=== PATIENT | female | born 1925 | race Caucasian/White ===

== ENCOUNTER 2017-01-29 19:40 | Inpatient (IN) | payer MEDICAID ==
[~2017-01-29] VITALS: Ht 157.5 cm; Wt 54.0 kg
[~2017-01-29 19:40] MED LIST: ATRMDI INH; CARV25TA55 PO; DIGO125T79 PO; FURO-149 PO; LIP40 PO; METF-510 PO; NITSL SL; NOR10 PO; TRAZ-123 PO; WARF5TAB2 PO
[2017-01-29 19:45] VITALS: BP 133/57; PULSE 57; RESP 16; TEMP 98.3; O2SAT 96
--- NOTE | 2017-01-29 20:25 | NUR ---
Placed in room H1 . Placed on pulse oximeter. To gown for exam. Side rails up. Report given to CM Mendez.
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
--- NOTE | 2017-01-29 20:36 | NUR ---
MOY Roa at bedside examining patient.
[2017-01-29] MEDS ORDERED: ONDANSETRON HCL 4 MG/2 ML VIAL IVP ONE (20:45)
[2017-01-29] MEDS ORDERED: NACL 0.9% 1,000 ML IV ONE (20:45)
--- NOTE | 2017-01-29 20:46 | NUR ---
Note undone in EDM - 01/30/17 at 0514 by DENA Pt was brought by BLS. Pt states that she was at her daughters house and started having 8/10 abd pain with vomitting. After vomitting, she was dizzy for 15 mins. Upon assessment, pt has 2/10 epigastric pain. Denies SOB. Pt states she still feels weak. AAOx4. Will continue to monitor. No other injuries or complaints mentioned/noted. No distress noted.
[2017-01-29 20:53] LABS: BASOPHILS % (AUTO) 0.3 % (0.0-2.0); MEAN CORPUSCULAR HEMOGLOBIN 25 pg (27-31); MEAN CORPUSCULAR HGB CONC 33 % (32-36)
--- NOTE | 2017-01-29 21:00 | NUR ---
# 20 gauge angiocath placed to L AC. Use of asceptic technique. Opsite placed over site. Blood return noted. Flushed with 10 cc of normal saline. No evidence of infiltration noted. Patient tolerated well.
[2017-01-29 21:02] LABS: EOSINOPHILS # (AUTO) 0.1 K/uL (0.0-0.4); EOSINOPHILS % (AUTO) 0.8 % (0.0-4.0); HEMATOCRIT 37.1 % (36-48); HEMOGLOBIN 12.1 g/dL (12.0-16.0); LYMPHOCYTES # (AUTO) 1.3 K/uL (1.0-5.5); LYMPHOCYTES % (AUTO) 13.2 % (20.5-51.5); MEAN CORPUSCULAR VOLUME 78 fL (79.0-98.0); MONOCYTES # (AUTO) 0.5 K/uL (0.0-1.0); MONOCYTES % (AUTO) 5.1 % (1.7-9.3); NEUTROPHILS # (AUTO) 7.6 K/uL (1.8-7.7); NEUTROPHILS % (AUTO) 80.6 % (40.0-70.0); PLATELET COUNT (AUTO) 247 K/uL (130-430); RED BLOOD CELL COUNT(AUTO) 4.78 MIL/uL (4.2-6.2); RED CELL DISTRIBUTION WIDTH 18.1 % (9.0-15.0); WHITE BLOOD COUNT (AUTO) 9.5 K/uL (4.8-10.8)
[2017-01-29 21:07] LABS: ANION GAP 9 (5-15); CALCIUM 9.6 mg/dL (8.4-11.0); CHLORIDE 101 mmol/L (98-107); CREATININE 1.31 mg/dL (0.55-1.30); GLUCOSE 173 mg/dL (70-99); POTASSIUM 4.1 mmol/L (3.5-5.1); SODIUM SERUM 137 mmol/L (136-145); UREA NITROGEN, BLOOD 22 mg/dL (8-21)
[2017-01-29 21:19] LABS: ALANINE AMINOTRANSFERASE 17 U/L (12-78); ALBUMIN 3.5 g/dL (3.4-4.8); ASPARTATE AMINOTRANSFERASE 14 U/L (10-37); LIPASE 444 U/L (73-393); TOTAL BILIRUBIN 0.7 mg/dL (0.0-1.0); TOTAL PROTEIN, SERUM 7.1 g/dL (6.4-8.3)
[2017-01-29 21:28] LABS: INR 3.9 (0.8-1.2); PROTHROMBIN TIME 44.5 SECS (9.5-12.5)
[2017-01-29] MEDS ORDERED: MORPHINE 2 MG/ML INJ. SYRINGE IVP ONE (21:45)
[2017-01-29 22:38] LABS: BILIRUBIN,URINE NEGATIVE (NEGATIVE); BLOOD, URINE NEGATIVE (NEGATIVE); CLARITY/URINE CLEAR (CLEAR); COLOR,URINE YELLOW (YELLOW); GLUCOSE,URINE NEGATIVE (NEGATIVE); KETONES,URINE NEGATIVE (NEGATIVE); LEUKOCYTE ESTERASE ,URINE NEGATIVE (NEGATIVE); NITRITE, URINE NEGATIVE (NEGATIVE); PROTEIN URINE TRACE (NEGATIVE); UROBILINOGEN,URINE 0.2 (0.2-1.0)
[2017-01-29 22:57] LABS: BACTERIA,URINE FEW /HPF (None Seen); RBC,URINE 0-3 /HPF (0-3); WBC,URINE 0-3 /HPF (0-3)
[2017-01-29 22:58] LABS: FINE GRANULAR CASTS,URINE 0-10 /LPF (None Seen); MUCUS,URINE 1+ /LPF (None Seen)
[2017-01-29] MEDS ORDERED: INSULIN REGULAR, HUMAN 100 UNITS/ML, 10 ML VIAL (novoLIN R) SUBCUT PRN (23:30)
[2017-01-29] MEDS ORDERED: MAG-AL HYDROX/SIMETH 30 ML UDC PO PRN (23:30)
[2017-01-29] MEDS ORDERED: ONDANSETRON HCL 4 MG/2 ML VIAL IVP PRN (23:30)
[2017-01-29 23:50] VITALS: BP 135/74; PULSE 122; RESP 18; TEMP 97.6; O2SAT 97
--- NOTE | 2017-01-29 23:52 | NUR ---
ADMISSION NOTE Received patient from ER via gurney. Patient admitted with diagnosis of Chest Pain. Patient is awake, alert, oriented X 2. Patient oriented to hospital room, call light, toileting, pain management and safety-teach back done. Patient informed that Megha will be primary nurse and that their room number is 101b. Personal belongings checked and Belongings List documented. Call light within reach.
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
--- NOTE | 2017-01-29 23:55 | NUR ---
Patient will be admitted to care of Dr. Shiedls. Admitted to Telemetry unit. Will go to room 101B. Summary report printed. Report given to Megha PABON.
--- NOTE | 2017-01-30 01:30 | NUR ---
Diaper Pt and her granddaughter insisted on pt wearing diapers, despite telling them it is against hospital policy.They were told the reason is to prevent decubitus ulcers. Pt's daughter stated she will provide the diapers. Pt's daughter then left and stated she was going to get some diapers from her car. Addendum: 01/30/17 at 0331 by Megha Maurice RN Correction: It was pt's granddaughter that stated she was going to get some diapers from her car.
--- NOTE | 2017-01-30 02:00 | NUR ---
Nothing By Mouth Through Charge Nurse Karina, pt was instructed in Amharic on nothing by mouth for Ultrasound of the Abdomen in AM and pt verbalized understanding. Pt asked about the whereabouts of her granddaughter and Charge Nurse Karina explained to pt that her granddaughter stated she was going to get some diapers from her car, but is yet to come back.
--- NOTE | 2017-01-30 03:30 | NUR ---
Rounds Pt is sleeping comfortably in bed without any distress noted. Call light is with pt and bed alarm is on. Pt's granddaughter is yet to come back with the diapers.
[2017-01-30 04:32] VITALS: BP 142/85; PULSE 75; RESP 18; TEMP 97.5; O2SAT 95
--- NOTE | 2017-01-30 05:30 | NUR ---
Rounds Pt is resting quietly in bed. No acute distress noted. Pt's granddaughter is at the bedside.
--- NOTE | 2017-01-30 06:48 | NUR ---
Closing Note Pt is awake and resting comfortably in bed. All pt's needs were attended to. No fall or injury noted this shift. Accuccheck 149 this AM and no Insulin coverage needed. Pt remains NPO for US of abdomen today. Pt and granddaughter were reminded of nothing by mouth for the US and they both verbalized understanding. Will endorse to day shift nurse.
[2017-01-30 08:00] VITALS: BP 135/88; PULSE 97; RESP 18; TEMP 97; O2SAT 97
--- NOTE | 2017-01-30 08:00 | NUR ---
RN NOTES PT IN BED,BAHAMIAN SPEAKING. KINESIOLOGY PROFESSOR AT BEDSIDE, PT ALERT AND ORIENTED, NO C/O PAIN. NO SOB, NO DISTRESS. PT KEPT NPO FOR U/S ABD. PT IS AWARE
--- NOTE | 2017-01-30 10:00 | NUR ---
PT IN BED, NO DISTRESS, NO SOB, OFFERED BS COMMODE, PT REFUSED.
[2017-01-30] MEDS ORDERED: IPRATROPIUM BROMIDE 17 mCg/ACTUATION, 12.9 GM AER.W.ADAP INH SCH (12:00)
[2017-01-30] MEDS ORDERED: NITROGLYCERIN 0.4 MG TAB.SUBL SL PRN (12:00)
--- NOTE | 2017-01-30 12:00 | NUR ---
PT IN BED, EATING LUNCH, NO DISTRESS, NO SOB.
[2017-01-30 12:10] VITALS: BP 140/99; PULSE 82; RESP 17; TEMP 98.2; O2SAT 96
[2017-01-30] MEDS ORDERED: FUROSEMIDE 40 MG TABLET PO ONE (12:15)
[2017-01-30] MEDS ORDERED: DEXTROSE 50% JECT 50 ML DISP.SYRIN IVP PRN (12:15)
[2017-01-30] MEDS ORDERED: CARVEDILOL 25 MG TABLET (COREG) PO ONE (12:15)
[2017-01-30] MEDS ORDERED: DIGOXIN 0.125 MG TABLET PO ONE (12:15)
[2017-01-30] MEDS ORDERED: amLODIPine BESYLATE 10 MG TABLET PO ONE (12:15)
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
--- NOTE | 2017-01-30 13:04 | NUR ---
Consult Called Reason for consultation: AF Was consult called: yes Person who was notified: Vangie Consulting Physician Mark Romero MD Ordered by: Sahra Shields MD
--- NOTE | 2017-01-30 14:00 | NUR ---
PT ASSISTED TO BS COMMODE. GOOD OUTPUT. NO C/O PAIN.
--- NOTE | 2017-01-30 14:11 | NUR ---
DISCHARGE PLANNING DC planning order to arrange home health. Called and spoke with patient dazoey Bolton confirmed address on facesheet for home health visits. Che did not have preference in home health and asked if previous home health can be arranged. Che stated she is going to follow up with [facility] to get additional care for patient at home. Faxed home health referral to [phone] [phone] with Che Lizarraga, daughter or [phone] to make visit arrangements. Will follow up. Addendum: 01/30/17 at 1616 by Meche VINES Called [phone] option 1 for intake spoke Andrea who accepted patient and is currently working on obtaining insurance. Andrea stated nursing staff able to start of care on 02/01/17 if insurance auth has been obtained. Andrea requested DCP to inform [facility] when patient will be discharged.
--- NOTE | 2017-01-30 16:00 | NUR ---
PT IN BED, AWAKE, NO C/O PAIN. NO SOB. IV SITE INTACT.
[2017-01-30 16:47] VITALS: BP 150/88; PULSE 86; RESP 18; TEMP 98.9; O2SAT 97
[2017-01-30] MEDS: INSULIN REGULAR, HUMAN 100 UNITS/ML, 10 ML VIAL (novoLIN R) SUBCUT PRN (17:40)
[2017-01-30] MEDS ORDERED: WARFARIN SODIUM 5 MG TABLET PO SCH (18:00)
--- NOTE | 2017-01-30 18:00 | NUR ---
PT IN BED, EATING DINNER, FAMILY AT BEDSIDE. NO PAIN. NO SOB OR DISTRESS.
--- NOTE | 2017-01-30 19:08 | NUR ---
INITIAL NOTES RCVD PT IN BED A/A/O X3 WITH JORDI @ BEDSIDE. NO C/O PAIN AND NO SOB NOTED. V/S 1128/79,97.0,58,18,97%RA. IV NOTED TO L F/A G20 NO INFILTRATE WITH GOOD BLOOD RETURN. BUE ARE STRONG, BLE ARE WEAK, USES BEDPAN. DISCUSSED PLAN OF CARE WITH PT AND FAMILY AND THEY VERBALIZED UNDERSTANDING. CALL LIGHT WITHIN REACH, WILL CONT TO MONITOR.
[2017-01-30 19:10] VITALS: BP 128/79; PULSE 58; RESP 18; TEMP 97.1; O2SAT 97
[2017-01-30] MEDS: CARVEDILOL 25 MG TABLET (COREG) PO SCH (21:00)
--- NOTE | 2017-01-30 21:08 | NUR ---
ASSISTED TO BEDSIDE COMMODE ASSISTED TO BEDSIDE COMMODE AND SAFELY BACKED TO BED. CALL LIGHT WITHIN REACH, WILL CONT TO MONITOR.
[2017-01-30] MEDS: ATORVASTATIN 20 MG TABLET PO SCH (21:20)
[2017-01-30] MEDS: traZODone HCL 50 MG TABLET (DESYREL) PO SCH (21:20)
--- NOTE | 2017-01-30 23:08 | NUR ---
ASSISTED TO COMMODE ASSISTED TO BEDSIDE COMMODE AND SAFELY BACKED TO BED. BED IN LOW POSITION AND CALL LIGHT WITHIN REACH, WILL CONT TO MONITOR.
[2017-01-31] VITALS (7 sets, daily range): BP systolic 150–155; BP diastolic 72–93; PULSE 58–98; RESP 12–18; TEMP 96.3–97.7; O2SAT 98–100
--- NOTE | 2017-01-31 01:08 | NUR ---
ROUNDS PT IS RESTING COMFORTABLY @ THIS TIME. NO C/O PAIN AND NO DISTRESS NOTED. BED IN LOW POSITION WITH CALL LIGHT WITHIN REACH; WILL CONT TO MONITOR.
--- NOTE | 2017-01-31 03:08 | NUR ---
ROUNDS PT IS RESTING COMFORTABLY IN BED WITH GRAND DAUGHTER @ BEDSIDE. BED IN LOW POSITION WITH CALL LIGHT WITHIN REACH. WILL CONT TO MONITOR.
--- NOTE | 2017-01-31 05:08 | NUR ---
ROUNDS PT IS AWAKE WITH GRAND DAUGHTER @ BEDSIDE. NO S/S OF PAIN OR ANY DISTRESS NOTED. CALL LIGHT WITHIN REACH,WILL CONT TO MONITOR.
--- NOTE | 2017-01-31 06:46 | NUR ---
FINAL NOTES PT IS RESTING COMFORTABLY @ THIS TIME WITH GRAND DAUGHTER @ BEDSIDE. V/S ARE WNL. NO C/O PAIN AND NO RESPI DISTRESS NOTED. ALL NEEDS MET AND ANTICIPATED BY NOC NURSES. BED IN LOW POSITION AND SIDE RAILS UP X3 FOR SAFETY. CALL LIGHT WITHIN REACH, WILL CONT TO MONITOR.
[2017-01-31 07:06] LABS: BASOPHILS % (AUTO) 0.5 % (0.0-2.0); EOSINOPHILS # (AUTO) 0.2 K/uL (0.0-0.4); HEMATOCRIT 37.1 % (36-48); HEMOGLOBIN 11.9 g/dL (12.0-16.0); LYMPHOCYTES # (AUTO) 2.2 K/uL (1.0-5.5); LYMPHOCYTES % (AUTO) 31.7 % (20.5-51.5); MEAN CORPUSCULAR HEMOGLOBIN 25 pg (27-31); MEAN CORPUSCULAR HGB CONC 32 % (32-36); MEAN CORPUSCULAR VOLUME 78 fL (79.0-98.0); MONOCYTES # (AUTO) 0.4 K/uL (0.0-1.0); MONOCYTES % (AUTO) 5.8 % (1.7-9.3); PLATELET COUNT (AUTO) 247 K/uL (130-430); RED BLOOD CELL COUNT(AUTO) 4.75 MIL/uL (4.2-6.2); RED CELL DISTRIBUTION WIDTH 17.8 % (9.0-15.0); WHITE BLOOD COUNT (AUTO) 6.8 K/uL (4.8-10.8)
[2017-01-31 07:25] LABS: INR 1.7 (0.8-1.2); PROTHROMBIN TIME 18.7 SECS (9.5-12.5)
--- NOTE | 2017-01-31 07:55 | NUR ---
Initial Note Received pt in bed, no s/s of distress or sob noted, pt has no c/o pain at this time, pt in stable condition, pt aaox4, verbal. Pt has no c/o chest pain at this time. Bed at lowest position, call light within reach, will continue to monitor pt for any changes, fall precautions in place.
[2017-01-31 07:56] LABS: ANION GAP 6 (5-15); CALCIUM 9.1 mg/dL (8.4-11.0); CHLORIDE 103 mmol/L (98-107); CHOLESTEROL 113 mg/dL (<200); CREATININE 0.86 mg/dL (0.55-1.30); DIGOXIN 0.4 ng/mL (0.80-2.00); GLUCOSE 187 mg/dL (70-99); HDL CHOLESTEROL 45 mg/dL (>55); LDL CHOLESTEROL 50 mg/dL (<100); LIPASE 388 U/L (73-393); POTASSIUM 3.6 mmol/L (3.5-5.1); SODIUM SERUM 139 mmol/L (136-145); THYROID STIMULATING HORMONE 0.89 uIu/mL (0.34-4.82); TRIGLYCERIDES 123 mg/dL (30-150); UREA NITROGEN, BLOOD 18 mg/dL (8-21)
[2017-01-31] MEDS: CARVEDILOL 25 MG TABLET (COREG) PO SCH ×2 (08:22→21:15)
--- NOTE | 2017-01-31 08:29 | NUR ---
Nutrition Note Carter scale of 18 noted. Pt admitted with chest pain. Diet: Mechanical Soft, Cardiac BMI: 21.8 kg/m2 RD to follow up per nutrition care standards.
[2017-01-31] MEDS ORDERED: FUROSEMIDE 40 MG TABLET PO SCH (09:00)
[2017-01-31] MEDS ORDERED: amLODIPine BESYLATE 10 MG TABLET PO SCH (09:00)
[2017-01-31] MEDS ORDERED: DIGOXIN 0.125 MG TABLET PO SCH (09:00)
[2017-01-31] MEDS ORDERED: BISACODYL 10 MG/SUPPOSITORY RC ONE (10:15)
--- NOTE | 2017-01-31 10:15 | NUR ---
MD ROUNDS Dr Heather lee, made aware that pt has no had a bowel movement for three days, new orders given for medication.
--- NOTE | 2017-01-31 10:26 | NUR ---
Rounds Pt in bed, no s/s of distress or sob noted, pt has no c/o pain at this time, pt in stable condition, pt resting comfortably, will continue to monitor pt for any changes.
[2017-01-31] MEDS: INSULIN REGULAR, HUMAN 100 UNITS/ML, 10 ML VIAL (novoLIN R) SUBCUT PRN ×3 (11:41→21:22)
--- NOTE | 2017-01-31 12:01 | NUR ---
DISCHARGE PLANNING DC order home with home health. Called [facility] spoke with Ronn who transferred call to Andrea in intake dept who was made aware of patient discharge home today.
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
--- NOTE | 2017-01-31 16:00 | NUR ---
MD ROUNDS Dr Heather lee, aware of patients condition and aware of patients blood pressure in the 150's, per md its ok to d/c pt today as ordered, no new orders given.
[2017-01-31] MEDS ORDERED: WARFARIN SODIUM 2.5 MG TABLET PO SCH (18:00)
--- NOTE | 2017-01-31 18:16 | NUR ---
CLOSING NOTE Pt in bed, no s/s of distress or sob noted, pt has no c/o pain at this time, pt in stable condition, pt aaox4, verbal. Pt has no c/o chest pain at this time. Bed at lowest position, call light within reach, will endorse care of pt to incoming nurse, fall precautions in place.
--- NOTE | 2017-01-31 20:00 | NUR ---
PM Shift Assessment Received patient sitting up in bed, AAO x4, no acute distress noted. Assessment complete, vital signs stable. IV noted to left AC, saline locked at this time, flushes well, no redness or swelling noted to IV site. Reminded patient to call for assistance if she needs to get out of bed, she verbalized understanding. Plan for discharge discussed with patient, she stated her granddaughter will be picking her up around 8pm. Patient is stable at this time, no complain of chest pain. Call light is within reach, all fall and safety precautions in place, will continue to monitor for change in patient status.
[2017-01-31] MEDS ORDERED: DOCUSATE SODIUM 100 MG CAPSULE PO SCH (21:00)
[2017-01-31] MEDS: traZODone HCL 50 MG TABLET (DESYREL) PO SCH (21:14)
[2017-01-31] MEDS: ATORVASTATIN 20 MG TABLET PO SCH (21:14)
--- NOTE | 2017-01-31 22:16 | NUR ---
RN Rounds Patient is resting quietly in bed, no acute distress noted or complain of pain at this time. Scheduled medications were administered earlier per MD order. Blood sugar was assessed and insulin provided per sliding scale. Granddaughter called and stated she is running late. Patient assisted up to bedside commode and safely back to bed. Call light is within reach, all fall and safety precautions in place, will continue to monitor.
--- NOTE | 2017-01-31 23:00 | NUR ---
D/C Patient Patient given medication reconciliation form and transitional care instructions. Exit Care provided. Patient and granddaughter verbalized understanding. Ambulatory with assistance for discharge to home. Patient in stable condition, ID band removed. IV catheter removed, intact and dressing applied, no active bleeding. Patient educated on pain management. Education on diabetes management also provided to granddaughter. All belongings sent with patient. Patient was taken out via wheelchair for discharge home in private auto.
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
== END 2017-01-31 23:00 | disposition home health service (06) | DRG 282 ==
LOC: SED 19:40 → STU 23:28
PROVIDERS: ADMIT Internal Medicine; ATTEND Internal Medicine
DX: K85.90 Acute pancreatitis without necrosis or infection, unspecified (principal); N17.9 Acute kidney failure, unspecified; E11.65 Type 2 diabetes mellitus with hyperglycemia; D68.69 Other thrombophilia; I48.2 Chronic atrial fibrillation; I11.0 Hypertensive heart disease with heart failure; E86.0 Dehydration; I50.9 Heart failure, unspecified; E78.5 Hyperlipidemia, unspecified; I25.2 Old myocardial infarction; I25.10 Atherosclerotic heart disease of native coronary artery without angina pectoris; T45.515A Adverse effect of anticoagulants, initial encounter; Z95.5 Presence of coronary angioplasty implant and graft; Z95.0 Presence of cardiac pacemaker; Y92.89 Other specified places as the place of occurrence of the external cause; Z79.899 Other long term (current) drug therapy
CPT/HCPCS: 36415; 71010; 76700-TC; 80048; 80053; 80061; 80162-TC; 81000-TC; 82962; 83690-TC; 84443-TC; 84484; 85025; 85610-TC; 93005; 93306; 96374; 97116-GP; 99285; J1815; J2270; J2405; J7030

== ENCOUNTER 2017-03-19 22:29 | Emergency (ER) | payer MEDICAID ==
[~2017-03-19] VITALS: Ht 154.9 cm; Wt 52.2 kg
[~2017-03-19 22:29] MED LIST changes: -METF-510 PO
[2017-03-19 22:35] VITALS: BP_SYST 133
[2017-03-19 23:25] LABS: ANION GAP 5 (5-15); CALCIUM 8.7 mg/dL (8.4-11.0); CHLORIDE 103 mmol/L (98-107); CREATININE 1.23 mg/dL (0.55-1.30); GLUCOSE 303 mg/dL (70-99); POTASSIUM 3.7 mmol/L (3.5-5.1); SODIUM SERUM 134 mmol/L (136-145); UREA NITROGEN, BLOOD 18 mg/dL (8-21)
[2017-03-19 23:26] LABS: BASOPHILS # (AUTO) 0.1 K/uL (0.0-0.2); BASOPHILS % (AUTO) 1.4 % (0.0-2.0); EOSINOPHILS # (AUTO) 0.1 K/uL (0.0-0.4); EOSINOPHILS % (AUTO) 2.7 % (0.0-4.0); HEMATOCRIT 35.4 % (36-48); HEMOGLOBIN 11.6 g/dL (12.0-16.0); LYMPHOCYTES # (AUTO) 2.1 K/uL (1.0-5.5); LYMPHOCYTES % (AUTO) 38.2 % (20.5-51.5); MEAN CORPUSCULAR HEMOGLOBIN 26 pg (27-31); MEAN CORPUSCULAR HGB CONC 33 % (32-36); MEAN CORPUSCULAR VOLUME 78 fL (79.0-98.0); MONOCYTES # (AUTO) 0.4 K/uL (0.0-1.0); MONOCYTES % (AUTO) 7.6 % (1.7-9.3); NEUTROPHILS # (AUTO) 2.8 K/uL (1.8-7.7); NEUTROPHILS % (AUTO) 50.1 % (40.0-70.0); PLATELET COUNT (AUTO) 229 K/uL (130-430); RED BLOOD CELL COUNT(AUTO) 4.52 MIL/uL (4.2-6.2); RED CELL DISTRIBUTION WIDTH 16.6 % (9.0-15.0); WHITE BLOOD COUNT (AUTO) 5.5 K/uL (4.8-10.8)
[2017-03-19 23:30] LABS: ALANINE AMINOTRANSFERASE 23 U/L (12-78); ALBUMIN 3.3 g/dL (3.4-4.8); ASPARTATE AMINOTRANSFERASE 17 U/L (10-37); TOTAL BILIRUBIN 0.7 mg/dL (0.0-1.0)
[2017-03-20 00:01] LABS: BILIRUBIN,URINE NEGATIVE (NEGATIVE); BLOOD, URINE NEGATIVE (NEGATIVE); COLOR,URINE YELLOW (YELLOW); GLUCOSE,URINE NEGATIVE (NEGATIVE); KETONES,URINE TRACE (NEGATIVE); LEUKOCYTE ESTERASE ,URINE 1+ (NEGATIVE); NITRITE, URINE NEGATIVE (NEGATIVE); PH,URINE 5.5 (5.0-8.0); PROTEIN URINE TRACE (NEGATIVE); UROBILINOGEN,URINE 0.2 (0.2-1.0)
[2017-03-20 00:03] LABS: CLARITY/URINE SLIGHTLY HAZY (CLEAR)
[2017-03-20 00:09] LABS: BACTERIA,URINE FEW /HPF (None Seen); HYALINE CASTS, URINE 0-10 /LPF (None Seen); MUCUS,URINE 1+ /LPF (None Seen); RBC,URINE 0-3 /HPF (0-3)
[2017-03-20 00:30] VITALS: BP_SYST 126
== END 2017-03-20 00:30 | disposition home or self-care (01) ==
LOC: SED 22:29
DX: S40.812A Abrasion of left upper arm, initial encounter (principal); N39.0 Urinary tract infection, site not specified; E11.9 Type 2 diabetes mellitus without complications; I48.91 Unspecified atrial fibrillation; I10 Essential (primary) hypertension; W22.8XXA Striking against or struck by other objects, initial encounter; Y93.89 Activity, other specified; Y99.8 Other external cause status; Y92.89 Other specified places as the place of occurrence of the external cause
CPT/HCPCS: 36415; 80053; 81000-TC; 85025; 87086; 99284